=== PATIENT | male | born 1990 | race Caucasian/White ===

== ENCOUNTER 2018-12-07 20:48 | Emergency (ER) | payer SELFPAY ==
[2018-12-07 20:51] VITALS: BP 142/95; PULSE 107; RESP 16; TEMP 36.7; O2SAT 97
--- NOTE | 2018-12-07 22:11 | ED.GENADUL_ITS ---
Discharge Plan Disposition Patient Disposition: HOME Condition: Stable Discharge Details Chief Complaint: Laceration Clinical Impression: Laceration of finger of left hand with damage to nail Primary Care Provider: None,None ED Provider: Aleks Singleton Home Meds and New Rx's Prescriptions: No Action No Known Home Meds RF: 0 Discharge Instructions Instructions: Finger Laceration (ED), Care For Your Absorbable Stitches (ED) Additional Instructions: Keep wound clean and dry and leave initial dressing on for the first 48 hours. Return immediately to the emergency department for any signs of infection otherwise follow-up with your primary care provider when you return home if sutures have not fallen out in the next 2 weeks. Referrals: None,None [Primary Care Provider] - (Follow-up with local primary care or emergency department if sutures have not come out in the next 2 weeks) Discharge Data Discharge Date/Time-TO BE ENTERED AT DEPARTURE: 12/07/18 22:29 Medical Decision Making Patient presenting to the emergency department for chief complaint of hand laceration. Patient states that he was preparing tingling when he excellently cut his left thumb through the nail. Patient denies any other injury or trauma. Patient thinks his tetanus is at least 5 years old may be older but is not sure. Patient is not from the area. Physical exam shows a approximately 1.5 cm laceration through the right dorsal aspect of the thumb and partially into the nail. Range of motion movement and sensation are all intact along with cap refill. Patient consented to digital block and 5 mL's of 1% lidocaine were injected in the base of the finger and appropriate anesthetic level was a chieved. Wound was sterilely prepared with Betadine and thoroughly irrigated with normal saline. Wound was visualized to base in bloodless field and shows a flap laceration just proximal to the nail and laceration through a portion of the nail. It is not obviously a nailbed laceration. I used 4-0 Vicryl was used to approximate the wound and keep nail approximated. 4 sutures were placed. Appropriate hemostasis was achieved with only minimal oozing of blood after the procedure and tourniquet were removed. Patient tolerated procedure well. Patient was given tetanus, Tylenol and Motrin for pain control. Return precautions were discussed. After discussion of diagnosis and plan of care patient is no further needs, questions, or concerns and states clear understanding to return to the emergency department for any worsening symptoms. HPI General Mode of arrival: ambulatory . Date/Time Provider Initiated Documentation: 12/07/18 20:57 . Limitations to Documentation: no limitations . Information obtained by: patient and RN notes reviewed . History of Present Illness 28 year old M presents to the emergency department with the chief complaint of Left thumb laceration, described as moderate, with intensity rated at 8. Quality is described as sharp, and is localized to the left and upper extremity. Patient started experiencing this hour(s) (1) and it has been constant. Patient notes no other symptoms.. Patient did receive the following treatments prior to arrival, none Related Data Home Medications Medication Instructions Recorded Confirmed Unknown [No Known Home Meds] 12/07/18 12/07/18 Allergies Allergy/AdvReac Type Severity Reaction Status Date / Time amoxicillin AdvReac Intermediate Diarrhea Unverified 12/07/18 20:57 doxycycline AdvReac Intermediate Nausea Unverified 12/07/18 20:57 Penicillins AdvReac Intermediate Diarrhea Unverified 12/07/18 20:57 General Stated Complaint: Laceration STUART: 3 Review of Systems Cardiovascular Denies syncope and Denies lightheadedness Musculoskeletal Denies deformity, Denies limited range of motion and Denies numbness Integumentary/Breasts Reports as per HPI Neurologic Denies syncope, Denies numbness and Denies paresthesias [facility] Medical History Heel fracture (Acute) Post concussive syndrome (Acute) TBI (traumatic brain injury) (Acute) Social History Smoking/Tobacco Use Status: Current every day Tobacco Type: cigarettes Alcohol Intake: current Alcohol Intake frequency: a few times a month Alcohol type: beer, wine and hard liquor Drug use: Occasionally Substance use type: marijuana Do you feel safe at home: Yes Do you feel safe in your relationship?: Yes Exam Const General: cooperative and no acute distress Orientation: alert, awake and oriented x3 Limitations: mental status not altered Resp Effort & Inspection: normal respiratory effort and able to speak in complete sentences Cardio Rate: regular rate Rhythm: regular rhythm Extrem Left upper extremity: hand Details: normal capillary refill, neuromotor exam normal, neurosensory exam normal, tendon exam normal and laceration (1.5cm to dorsal aspect of thumb that does go partially through the nail.); no crepitus and no foreign bodies Course Vital Signs Temperature 36.7 C 12/07/18 20:51 Pulse 107 H 12/07/18 20:51 Respiratory Rate 16 12/07/18 20:51 Blood Pressure 142/95 H 12/07/18 20:51 Pulse Oximetry 97 12/07/18 20:51 Temperature 36.7 C 12/07/18 20:51 Temperature Source Skin 12/07/18 20:51 Pulse 107 H 12/07/18 20:51 Respiratory Rate 16 12/07/18 20:51 Respiratory Effort Non-Labored 12/07/18 20:53 Blood Pressure 142/95 H 12/07/18 20:51 Pulse Oximetry 97 12/07/18 20:51 Pain Level 8 12/07/18 20:51
[2018-12-07] MEDS: Ibuprofen 600 MG TAB PO (22:17)
[2018-12-07] MEDS: Acetaminophen 500 MG TAB 1000 MG PO (22:17)
== END 2018-12-07 22:29 | disposition home or self-care (01) ==
PROVIDERS: Emergency Provider Nurse Practitioner Family
DX: S61.213A Laceration without foreign body of left middle finger without damage to nail, initial encounter (principal); W45.8XXA Other foreign body or object entering through skin, initial encounter
CPT/HCPCS: 12001; 90471